=== PATIENT | female | born 1955 | race Caucasian/White ===

== ENCOUNTER 2017-05-06 09:32 | Emergency (ER) | payer OTHER ==
[~2017-05-06] VITALS: Ht 162.6 cm; Wt 65.0 kg
[~2017-05-06 09:32] MED LIST: ALBU8.5H3 INH; AZIT250T94 PO; BENZ200C43 PO; DCL25TEC PO; DIAZ-90 PO; LOSA50TA6 PO; NAPR-260 PO; OXYM15SP34 NASAL; PRED50TA PO
[2017-05-06 09:33] VITALS: Ht 162.6 cm; Wt 65.0 kg
[2017-05-06] MEDS ORDERED: KETOROLAC 30 MG INJ IM STA (10:24)
[2017-05-06 10:34] LABS: URINE BLOOD (Dip) POC Negative (NEGATIVE)
[2017-05-06] MEDS ORDERED: ACET1TAB40 PO (11:03)
[2017-05-06] MEDS ORDERED: PRED20TA PO (11:03)
--- NOTE | 2017-05-06 11:13 | ERD ---
ER Documentation Chief Complaint Date/Time DATE: 05/06/17 TIME: 11:09 Chief Complaint KEENAN KNEE PAIN,RIGHT SHOULDER PAIN HPI 62-year-old female presents with multiple complaints. She went to vital knee pain several months to years. As well as right shoulder pain for the similar duration patient has a history of recent trauma. She is taking Tylenol for pain without relief. She denies chest pain shortness of breath, urinary complaints, weakness. She complains of elbow roman catholic headache and sensation of dizziness without deficits, vomiting, visual changes, fevers. ROS All systems reviewed and are negative except as per history of present illness. Medications Home Meds Active Scripts Prednisone* (Prednisone*) 20 Mg Tab, 40 MG PO DAILY for 3 Days, TAB Start 05/07/2017 Prov:RAMSEY VELA MD 05/06/17 Acetaminophen with Codeine (Acetaminophen-Cod #3 Tablet) 1 Each Tablet, 1 TAB PO Q6H Y for PAIN, #7 TAB Prov:RAMSEY VELA MD 05/06/17 Albuterol Sulfate* (Proair HFA*) 8.5 Gm Hfa.aer.ad, 2 PUFF INH Q4, #1 INHALER Prov:FABIANO FLEMING DO 01/12/17 Oxymetazoline Hcl* (Afrin [place]*) 0.05% - 15 Ml [place], 2 SPRAYS NASAL BID, #1 EA to each nostril Prov:FABIANO FLEMING DO 01/12/17 Azithromycin* (Zithromax*) 250 Mg Tablet, 250 MG PO .ErinnPACK DIRECTED, #6 TAB TAKE 500 MG (2 TABS) THE FIRST DAY THEN 250 MG (1 TAB) DAYS 2-5 Prov:FABIANO FLEMING DO 01/12/17 Benzonatate* (Benzonatate*) 200 Mg Capsule, 200 MG PO TID Y for COUGH, #20 CAP Prov:OSCAR STEWART MD 08/22/15 Diazepam* (Valium*) 5 Mg Tablet, 5 MG PO Q8, #20 TAB Prov:OSCAR STEWART MD 08/22/15 Naproxen* (Naprosyn*) 500 Mg Tablet, 500 MG PO BID Y for PAIN AND/OR INFLAMMATION, #30 TAB Prov:OSCAR STEWART MD 08/22/15 Prednisone* (Prednisone*) 50 Mg Tablet, 50 MG PO DAILY, #5 TAB Prov:OSCAR STEWART MD 08/22/15 Reported Medications Diclofenac Sodium* (Diclofenac Sodium*) 25 Mg Tablet.dr, 50 MG PO BID, TAB 08/22/15 Losartan Potassium* (Losartan Potassium*) 50 Mg Tablet, 50 MG PO DAILY, TAB 08/22/15 Allergies Allergies: Coded Allergies: No Known Allergy (Unverified , 05/06/17) PMhx/Soc History of Surgery: No (DENIES) Hx Miscellaneous Medical Probl: Yes (HTN) Hx Alcohol Use: No Hx Substance Use: No Hx Tobacco Use: No Smoking Status: Never smoker Physical Exam Vitals Vital Signs Date Time Temp Pulse Resp B/P Pulse Ox O2 Delivery O2 Flow Rate FiO2 05/06/17 09:33 97.1 60 18 163/73 99 Physical Exam Const: [] Alert, not ill-appearing. Head: Atraumatic Eyes: Normal Conjunctiva ENT: Normal External Ears, Nose and Mouth. Neck: Full range of motion..~ No meningismus. Resp: Clear to auscultation bilaterally Cardio: Regular rate and rhythm, no murmurs Abd: Soft, non tender, non distended. Normal bowel sounds Skin: No petechiae or rashes Back: No midline or flank tenderness Ext: No cyanosis, or edema. Minimal tenderness the right rotator cuff viral knees without effusion, deformities, warmth or erythema, Swelling or Homans sign. Neur: Awake and alert. Normal gait. No appreciable focal neurologic deficits. Psych: Normal Mood and Affect Results 24 hrs Laboratory Tests Test 05/06/17 10:39 Bedside Urine pH (LAB) 6.0 Bedside Urine Protein (LAB) Trace Bedside Urine Glucose (UA) Negative Bedside Urine Ketones (LAB) Negative Bedside Urine Blood Negative Bedside Urine Nitrite (LAB) Negative Bedside Urine Leukocyte Esterase (L Negative Current Medications Medications (Trade) Dose Ordered Sig/Artie Route PRN Reason Start Time Stop Time Status Last Admin Dose Admin Ketorolac Tromethamine (Toradol) 30 mg ONCE STAT IM 05/06/17 10:24 05/06/17 10:25 DC 05/06/17 10:36 Procedures/MDM Urine is negative for leukocytes, nitrites, glucose, hemoglobin. Further radiologic study Center studies were deferred given patient's well appearance and no abnormal findings on exam and duration of symptoms. Patient is given Toradol 30 mg IM. Patient since with worsening knee pain and right shoulder pain without signs or symptoms to suggest septic arthritis, fracture, dislocation, patient has no signs or symptoms of emergent conditions currently. Recommend primary care follow-up for patient. Patient will be treated with tramadol at home and further observation. Patient should return for fevers, vomiting, cancer or new worsening symptoms with primary care doctor this week.The patient was stable with no new complaints during the ER course. Clinically, there is no current evidence to suggest meningitis, sepsis, acute abdomen, pneumonia, acute coronary syndrome, pulmonary embolism, or any other emergent condition appearing to require further evaluation or hospitalization. The patient should certainly return for any new or worsening symptoms per the aftercare instructions. They should otherwise follow-up with her primary care doctor for reevaluation this week. Departure Diagnosis: Primary Impression: Knee pain Laterality: right Chronicity: unspecified Qualified Code: M25.561 - Right knee pain, unspecified chronicity Additional Impression: Shoulder pain Laterality: right Chronicity: unspecified Qualified Code: M25.511 - Right shoulder pain, unspecified chronicity Condition: Stable Patient Instructions: Sinusitis, Abx Tx Additional Instructions: CONTINUA LA MEDICINA QUE TIENE. Cheque otro vez con soares doctor primario en el proximo ambrose or regresa para mas o nueva simptomas. RAMESY VELA MD May 06, 2017 11:13
[2017-05-06] MEDS ORDERED: TRAM50TA2 PO (11:15)
== END 2017-05-06 11:28 | disposition home or self-care (01) ==
LOC: FTE 09:32
DX: M25.561 Pain in right knee (principal); M25.562 Pain in left knee; M25.511 Pain in right shoulder; I10 Essential (primary) hypertension
CPT/HCPCS: 81003; 96372; J1885; Z7502

== ENCOUNTER 2018-09-27 09:02 | Emergency (ER) | END 2018-09-27 14:50 | disposition left against medical advice (07) ==

== ENCOUNTER 2018-09-29 09:29 | Emergency (ER) | END 2018-09-29 13:13 | disposition home or self-care (01) ==